=== PATIENT | female | born 1965 | race Caucasian/White ===

== ENCOUNTER 2020-03-29 18:32 | Emergency (ER) | payer OTHER ==
[~2020-03-29] VITALS: Ht 177.8 cm; Wt 83.0 kg
--- NOTE | 2020-03-29 19:02 | NUR ---
CONNOR AT BEDSIDE SPEAKING TO PT.
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
--- NOTE | 2020-03-29 19:18 | NUR ---
BROUGHT TO CT.
[2020-03-29] MEDS ORDERED: LORAZEPAM 1 MG TABLET ONE (19:33)
[2020-03-29] MEDS ORDERED: IBUPROFEN 600 MG TABLET ONE (19:34)
[2020-03-29] MEDS: LORAZEPAM 1 MG TABLET PO ONE (19:36)
[2020-03-29] MEDS: IBUPROFEN 600 MG TABLET PO ONE (19:36)
--- NOTE | 2020-03-29 19:36 | NUR ---
PT MEDICATED. AWAITING XRAY AND CT RESULTS.
--- NOTE | 2020-03-29 20:27 | NUR ---
Patient discharged to home in stable condition. Written and verbal after care instructions given. Patient verbalizes understanding of instruction and RX. Pt ambualted with steady gait. denies pain.
[2020-03-29 20:28] VITALS: BP 121/79
== END 2020-03-29 20:28 | disposition home or self-care (01) ==
LOC: ER 18:34
DX: S60.511A Abrasion of right hand, initial encounter (principal); R51 Headache; K04.7 Periapical abscess without sinus; F10.239 Alcohol dependence with withdrawal, unspecified; R42 Dizziness and giddiness; Y04.0XXA Assault by unarmed brawl or fight, initial encounter; Y93.01 Activity, walking, marching and hiking; Y92.89 Other specified places as the place of occurrence of the external cause; Y99.8 Other external cause status; Y90.9 Presence of alcohol in blood, level not specified
CPT/HCPCS: 29125; 70450; 70486; 72125; 73130; 99285; A6403; L0172